=== PATIENT | female | born 1975 | race Caucasian/White ===

== ENCOUNTER 2017-05-05 12:33 | Emergency (ER) | payer BC ==
--- NOTE | ~2017-05-05 | CR127 ---
[facility] A Service of [facility] & [facility] / [facility] RADIOLOGY TEXT RESULTS PATIENT: ANNAMARIA BRYSON LOCATION: [facility] : 75 UNIT #: [id number] AGE: [address]: Vaishali Tilley SEX: F ORDER DR: [id number] [facility] [address] [place], [place] [address] [id number] MR#: [id number] Acc #: [id number] NAME: ANNAMARIA BRYSON : 1975 SEX: F STUDY DATE/TIME: 05/05/2017 15:57 UNIT: [place] ROOM: STUDY DESCRIPTION: CR Foot Complete Min 3 View Rt Attending Physician: Vaishali Tilley Pa-C Ordering Physician: Vaishali Tilley Pa-C Primary Care Physician: Ray Lind M.D. MEDICAL IMAGING REPORT This report is preliminary unless electronic signature is present EXAM Right foot, 3 views HISTORY Foot and ankle pain laterally, twisting ankle walking down steps yesterday. FINDINGS Three views of the right foot demonstrates a crescent-shaped lucency in the anterior aspect of the cuboid bone, raises a concern for a nondisplaced anterior cuboid fracture. Correlate with targeted physical exam. No disruption of the tarsometatarsal joint. Hallux valgus deformity noted with a large bunion and soft tissue swelling medial aspect first metatarsal head. No significant arthritic changes seen at the MTP joints or phalangeal joints. Dictated by... Mattie Lynn M.D. THIS IS AN ELECTRONICALLY VERIFIED REPORT Mattie Lynn M.D. at 05/06/2017 3:08 PM JALYN/jeffery TD: 05/06/2017 02:17 JOB #: [id number] MEDICAL IMAGING REPORT Page 1 of 1 COPY
--- NOTE | ~2017-05-05 | CR21 ---
[facility] A Service of [facility] & [facility] RADIOLOGY TEXT RESULTS PATIENT: ANNAMARIA BRYSON LOCATION: [facility] : 75 UNIT #: [id number] AGE: [address]: Vaishali Tilley SEX: F ORDER DR: [id number] [facility] [address] [place], [place] [address] [id number] E MR#: [id number] Acc #: [id number] NAME: ANNAMARIA BRYSON : 1975 SEX: F STUDY DATE/TIME: 05/05/2017 15:55 UNIT: [facility] ROOM: STUDY DESCRIPTION: CR Ankle Min 3 Views Rt Attending Physician: Vaishali Tilley Pa-C Ordering Physician: Vaishali Tilley Pa-C Primary Care Physician: Ray Lind M.D. MEDICAL IMAGING REPORT This report is preliminary unless electronic signature is present EXAM Right ankle, 3 views HISTORY 41-year-old female right lateral ankle and foot pain and swelling since yesterday, twisted ankle walking down steps. FINDINGS AP, lateral, and oblique projections of the ankle show satisfactory integrity of the joint mortise with a smooth articular surface. There is no identifiable fracture, dislocation, or radiopaque foreign body. IMPRESSION Normal ankle. Dictated by... Mattie Lynn M.D. THIS IS AN ELECTRONICALLY VERIFIED REPORT Mattie Lynn M.D. at 05/06/2017 3:08 PM JALYN/jeffery TD: 05/06/2017 02:06 JOB #: [id number] MEDICAL IMAGING REPORT Page 1 of 1 COPY
[~2017-05-05 12:33] MED LIST: BP MED; CIPRO HC OTIC S10 ML OT; KETOROLAC TROMET5 M1 OD; SYNTHROID PO; TYLOX 5/500 CAP1 CAP PO; ZESTORETIC 20/21 TAB PO
== END 2017-05-05 17:20 | disposition home or self-care (01) ==
LOC: CED 12:33 → CFTX 12:33
DX: S92.214A Nondisplaced fracture of cuboid bone of right foot, initial encounter for closed fracture (principal); I10 Essential (primary) hypertension; E03.9 Hypothyroidism, unspecified; F17.210 Nicotine dependence, cigarettes, uncomplicated; X50.1XXA Overexertion from prolonged static or awkward postures, initial encounter; Y93.9 Activity, unspecified; Y92.009 Unspecified place in unspecified non-institutional (private) residence as the place of occurrence of the external cause
CPT/HCPCS: 29515; 73610; 73630; 99283